=== PATIENT | male | born 1990 | race African-American/Black ===

== ENCOUNTER 2017-12-01 19:43 | Emergency (ER) | payer OTHER ==
[2017-12-01 20:09] VITALS: BP 144/78; PULSE 85; TEMP 98.1; BMI 28.1
--- NOTE | 2017-12-01 22:26 | PDOC ---
History of Present Illness - General Chief Complaint: Chest Pain Stated Complaint: CHEST PAIN Time Seen by Provider: 12/01/17 22:12 History Source: Patient Exam Limitations: No Limitations - History of Present Illness Initial Comments: CHIEF COMPLAINT: 27 y/o afebrile male with no significant PMH c/o chest discomfort x 1 week. HISTORY OF PRESENT ILLNESS: The patient states the discomfort is intermittent and is most noticeable with deep inspiration. He states he cannot describe it as pain. He points to his left midaxillary area as the location of the discomfort. He went to an Urgent care today, had an abnormal EKG and they sent him here. He works out everyday and is generally healthy. he denies f/c, n/v/d , cough, hemoptysis, SOB, abd pain, back pain, left arm pain, calf pain, recent travel, smoking history. He does admit he stopped taking creatine supplement 3 weeks ago because it was giving him palpitations. He denies family history of sudden cardiac . Vital signs on arrival are within normal limits. REVIEW OF SYSTEMS: GENERAL/CONSTITUTIONAL: No fever/chills. No weakness. No weight change. HEAD, EYES, EARS, NOSE AND THROAT: No change in vision. No ear pain or discharge. No sore throat. CARDIOVASCULAR: +chest discomfot. No shortness of breath. RESPIRATORY: No cough, wheezing, or hemoptysis. GASTROINTESTINAL: No abd pain, nausea, vomiting, diarrhea. GENITOURINARY: No dysuria, frequency, or change in urination. MUSCULOSKELETAL: No joint or muscle swelling or pain. No neck or back pain. SKIN: No rash or easy bruising. NEUROLOGIC: No headache, vertigo, loss of consciousness, or loss of sensation. PHYSICAL EXAM: GENERAL: The patient is awake, alert, and fully oriented, in no acute distress. he is a very well appearing, in shape, ambulatory male in NAD or obvious discomfort. HEAD: Normal with no signs of trauma. ENT: Pupils equal, round and reactive to light, extraocular movements intact, sclera anicteric, conjunctiva clear. Neck supple. LUNGS: Clear to auscultation bilaterally. Normal excursion. No respiratory distress or use of accessory muscles. CV: RRR, S1/S2, no MRG. Cap refill < 2 sec. CHEST WALL: No pain reproduced with palpation of chest wall. ABDOMEN: Soft, non-distended, non-tender even to deep palpation, no hepatomegaly or splenomegaly, no masses. EXTREMITIES: Normal range of motion, no edema. NEUROLOGICAL: Normal speech, normal gait. CN II-XII grossly intact. SKIN: Warm, dry, normal turgor, no rashes or lesions noted. Past History - Past Medical History Allergies/Adverse Reactions: Allergies Allergy/AdvReac Type Severity Reaction Status Date / Time No Known Drug Allergies Allergy Verified 12/01/17 20:05 seafood Allergy Severe Difficulty Uncoded 12/01/17 20:05 Breathing Home Medications: Ambulatory Orders NK [No Known Home Medication] 12/02/17 Asthma: Yes - Immunization History Immunization Up to Date: Yes - Suicide/Smoking/Psychosocial Hx Smoking Status: No Smoking History: Never smoked Number of Cigarettes Smoked Daily: 0 Hx Alcohol Use: Yes (occasionaly) Drug/Substance Use Hx: No Substance Use Type: None *Physical Exam - Vital Signs Last Vital Signs Temp Pulse Resp BP Pulse Ox 98.1 F 85 20 144/78 100 12/01/17 20:05 12/01/17 20:05 12/01/17 20:05 12/01/17 20:05 12/01/17 20:05 Heart Score/ECG Review - ECG Intrepretation Comment:: Twelve-lead EKG was performed and reviewed by Dr. Reid. There is normal sinus rhythm with a normal rate. Rightward axis. Incomplete right bundle branch block. The intervals are normal. There are no ST or T wave abnormalities. Impression: Borderline twelve-lead EKG ED Treatment Course - LABORATORY CBC & Chemistry Diagram: 12/01/17 22:45 12/01/17 23:40 - ADDITIONAL ORDERS Additional order review: Laboratory Results 12/01/17 12/01/17 23:40 22:45 Sodium 140 Cancelled Potassium 4.1 Cancelled Chloride 106 Cancelled Carbon Dioxide 27 Cancelled Anion Gap 7 L Cancelled BUN 17 D Cancelled Creatinine 1.2 Cancelled Creat Clearance w eGFR > 60 Cancelled Random Glucose 106 Cancelled Calcium 9.1 Cancelled Total Bilirubin 0.3 D Cancelled AST 26 Cancelled ALT 48 D Cancelled Alkaline Phosphatase 66 Cancelled Creatine Kinase 549 H Cancelled Creatine Kinase Index 0.3 CK-MB (CK-2) 2.097 Troponin I < 0.02 Cancelled Total Protein 7.2 Cancelled Albumin 4.3 Cancelled 12/01/17 22:45 RBC 4.74 MCV 91.8 MCHC 33.9 RDW 13.2 MPV 10.0 Neutrophils % 65.8 Lymphocytes % 26.3 D Monocytes % 6.6 Eosinophils % 0.7 Basophils % 0.6 - RADIOLOGY Radiology Studies Ordered: Category Date Time Status CHEST CTA [CT] Stat CT Scan 12/02/17 00:06 Taken Medical Decision Making - Medical Decision Making A/P: 27 y/o male with 1 week of left sided chest discomfort with abnormal EKG. Plan is as follows: 1. Labs 2. CTA chest Chest CTA IMPRESSION: No evidence of acute pathology. Troponin negative. Gave patient results. Will discharge to home with instructions for Cardiology follow up. Suggested he stay well hydrated and return to the ER immediately with any worsening or concerning symptoms. The patient verbalizes understanding of all instructions, has no further questions and is awaiting discharge. *DC/Admit/Observation/Transfer Diagnosis at time of Disposition: Atypical chest pain - Discharge Dispostion Disposition: HOME Condition at time of disposition: Good - Referrals Referrals: Tomas Rojas MD [Staff Physician] - 14 days - Patient Instructions Printed Discharge Instructions: DI for Atypical Chest Pain Additional Instructions: Discharge Instructions: -The Cat Scan of your heart and lungs showed no blood clot and a normal size heart -Your EKG was abnormal; please follow up with Dr. Rojas or a production intern of your choice within 2 weeks -Return to the ER immediately with any worsening or concerning symptoms - Post Discharge Activity Forms/Work/School Notes: Back to Work, Parent(s) Back to Work Note
[2017-12-01 22:55] LABS: BASO % 0.6 % (0-2.0); EOS % 0.7 % (0-4.5); HEMATOCRIT 43.5 % (35.4-49); HEMOGLOBIN 14.7 GM/dL (11.7-16.9); LYMPH % 26.3 % (8-40); MCH 31.1 pg (25.7-33.7); MCHC 33.9 g/dl (32.0-35.9); MEAN CELL VOLUME 91.8 fl (80-96); MONO % 6.6 % (3.8-10.2); NEUT % 65.8 % (42.8-82.8); PLATELET COUNT 296 K/MM3 (134-434); RBC 4.74 M/mm3 (4.00-5.60); RDW 13.2 % (11.9-15.9); WHITE BLOOD COUNT 9.2 K/mm3 (4.0-10.0)
--- NOTE | 2017-12-01 23:00 | PDOC ---
*Physical Exam - Vital Signs Last Vital Signs Temp Pulse Resp BP Pulse Ox 98.1 F 85 20 144/78 100 12/01/17 20:05 12/01/17 20:05 12/01/17 20:05 12/01/17 20:05 12/01/17 20:05 Heart Score/ECG Review #1 ECG reviewed & interpreted by me at: 20:00 12/01/17 23:00 NSR 83 with 1st degree AV block, righward axis, incomplete RBBB, QTC 425 msec ED Treatment Course - LABORATORY CBC & Chemistry Diagram: 12/01/17 22:45 12/01/17 22:45 Medical Decision Making - Medical Decision Making 12/01/17 23:00 Pt seen by the Advanced Practice Provider under my direct supervision Ancillary studies reviewed I agree with plan as outlined by the Advanced Practice Provider BOBO Whittington *DC/Admit/Observation/Transfer Diagnosis at time of Disposition: lbe - Referrals - Patient Instructions - Post Discharge Activity
[2017-12-02 00:14] LABS: ALBUMIN 4.3 g/dl (3.4-5.0); ANION GAP 7 (8-16); BILIRUBIN,TOTAL 0.3 mg/dL (0.2-1.0); BLOOD UREA NITROGEN 17 mg/dL (7-18); CALCIUM 9.1 mg/dL (8.5-10.1); CHLORIDE 106 mmol/L (98-107); CO2 27 mmol/L (21-32); CREATININE 1.2 mg/dL (0.7-1.3); GLUCOSE,RANDOM 106 mg/dL (74-106); POTASSIUM 4.1 mmol/L (3.5-5.1); SGOT/AST 26 U/L (15-37); SGPT/ALT 48 U/L (12-78); SODIUM 140 mmol/L (136-145); TOT PROT 7.2 g/dl (6.4-8.2)
[2017-12-02 00:16] LABS: ALK PHOS 66 U/L (45-117)
--- NOTE | 2017-12-03 13:21 | EKG ---
Test Reason : Blood Pressure : / mmHG Vent. Rate : 083 BPM Atrial Rate : 083 BPM P-R Int : 214 ms QRS Dur : 104 ms QT Int : 362 ms P-R-T Axes : 054 102 042 degrees QTc Int : 425 ms SINUS RHYTHM WITH 1ST DEGREE A-V BLOCK RIGHTWARD AXIS INCOMPLETE RIGHT BUNDLE BRANCH BLOCK BORDERLINE ECG NO PREVIOUS ECGS AVAILABLE Confirmed by LINDA RUSSO MD ([id number]) on 12/03/2017 1:21:03 PM Referred By: Confirmed By:LINDA RUSSO MD
== END 2017-12-02 02:10 | disposition home or self-care (01) ==
LOC: JER 19:43
DX: R07.89 Other chest pain (principal)
CPT/HCPCS: 36415; 71275-TC; 80053; 82550; 82553; 84484; 85025; 93005; 93010; 99281-25

== ENCOUNTER 2021-05-05 08:07 | Emergency (ER) | payer OTHER ==
[2021-05-05 08:32] VITALS: BMI 27.5
[2021-05-05] MEDS ORDERED: MECLIZINE HCL 25 MG TABLET (FP) PO ONE (09:09)
[2021-05-05] MEDS ORDERED: MECLIZINE HCL 25 MG TABLET (FP) ONE (09:32)
[2021-05-05 09:36] VITALS: BP 134/83; PULSE 89; TEMP 98.2
== END 2021-05-05 09:42 | disposition home or self-care (01) ==
LOC: JER 08:07
DX: R42 Dizziness and giddiness (principal)
CPT/HCPCS: 93005; 93010; 99283-25